=== PATIENT | male | born 1955 | race Caucasian/White ===

== ENCOUNTER 2017-04-15 20:11 | Emergency (ER) | payer OTHER ==
[2017-04-15 20:16] VITALS: BP 146/95
[2017-04-15 21:40] LABS: BASOPHIL % 0.3 % (0-2); RED CELL DISTRIBUTION WIDTH 14.1 % (11.5-14.5)
[2017-04-15 21:52] LABS: PLATELET COUNT 128 x10^3mcL (130-400)
[2017-04-15 22:23] LABS: ALKALINE PHOSPHATASE 60 U/L (46-116); ALT/SGPT 83 U/L (16-63); AST/SGOT 67 U/L (15-37); BILIRUBIN TOTAL 0.7 mg/dL (0.20-1.00); CALCIUM 8.2 mg/dL (8.5-10.1); CHLORIDE SERUM 107 mmol/L (98-107); CREATININE SERUM 1.2 mg/dL (0.7-1.3); GFR1 > 60 mL/min; GLUCOSE SERUM 306 mg/dL (74-106); POTASSIUM SERUM 3.2 mmol/L (3.5-5.1); SODIUM SERUM 144 mmol/L (136-145)
[2017-04-15 22:24] LABS: ALBUMIN 3.3 g/dL (3.4-5.0); TOTAL PROTEIN, SERUM 6.1 g/dL (6.4-8.2)
[2017-04-15 22:25] LABS: CARBON DIOXIDE 9.7 mmol/L (21-32)
== END 2017-04-15 21:21 | disposition expired ==
LOC: ED 20:11
PROVIDERS: Emergency Medicine
DX: I21.09 ST elevation (STEMI) myocardial infarction involving other coronary artery of anterior wall (principal); I46.9 Cardiac arrest, cause unspecified
CPT/HCPCS: 83880; J0171; J2405; J2765; J3490